=== PATIENT | female | born 1985 | race Caucasian/White ===

== ENCOUNTER 2016-11-08 08:17 | Emergency (ER) | payer OTHER, MEDICARE ==
[~2016-11-08] VITALS: Ht 162.6 cm; Wt 95.3 kg
--- NOTE | 2016-11-08 08:51 | ED GI/GU/ABDOMINAL COMPLAINT ---
History of Present Illness General Chief Complaint: Nausea, Vomiting, Diarrhea Stated Complaint: BIBA FOR NVD Source: patient, family, old records Exam Limitations: no limitations Vital Signs & Intake/Output Vital Signs & Intake/Output Vital Signs Date Time Temp Pulse Resp B/P Pulse O2 O2 Flow FiO2 Ox Delivery Rate 11/08 1204 102.3 11/08 1135 102.3 120 18 120/62 96 Room Air 11/08 0822 100.5 92 16 108/64 95 Room Air Allergies Coded Allergies: No Known Allergies (11/08/16) Reconcile Medications Cholecalciferol (Vitamin D3) (Vitamin D3) 5,000 UNIT TABLET 1 TAB PO DAILY SUPPLEMENT (Reported) Colostrum, Bovine (Colostrum) 500 MG CAPSULE 2 CAP PO BID SUPPLEMENT ( Reported) Doxycycline Hyclate 100 MG CAPSULE 1 CAP PO BID ANTIBIOTIC, INFECTION ( Reported) Fluconazole 150 MG TABLET 1 TAB PO ONE ANTIBIOTIC, INFECTION (Reported) Metformin HCl (Metformin HCl ER) 500 MG [id number] 1 TAB PO DAILY DIABETES, POLYCYSTIC (Reported) Metronidazole 500 MG TABLET 1 TAB PO TID GI (Reported) Omeprazole 20 MG CAPSULE.DR 1 CAP PO DAILY GI (Reported) Penicillin G Benzathine (Bicillin L-A) 1.2 MILLION UNIT/2 ML SYRINGE 1 INJ QWED ANTIBIOTIC, INFECTION (Reported) Prednisone 2.5 MG TABLET 1 TAB PO DAILY STEROID (Reported) Rifampin 300 MG CAPSULE 1 CAP PO BID GI (Reported) Triage Note: BIBA FROM HOME WITH C/O NAUSEA AND VOMITING SINCE 4AM THIS MORNING. HX: LYME DISEASE SINCE JANUARY PER PT. PT ARRIVES AWAKE, ALERT, ANSWERING QUESTIONS APPROPRIATELY, KEEPING EYES CLOSED. Triage Nurses Notes Reviewed? yes ? N Is pt currently ? No HPI: Patient presents for evaluation of abrupt onset of nausea vomiting and diarrhea. Patient states that she awoke about 4 AM with a burning heartburn pain with belching acid. She took Tums with some relief. Shortly after however she began having multiple episodes of vomiting and nonbloody diarrhea. She also feels very dizzy and her feet are cold. She has experienced shaking chills. She denies any associated chest pain, dyspnea, known ill contacts, recent travel, rashes or suspicious meals. Past History Travel History Traveled to [place] past 21 day No Medical History Any Pertinent Medical History? see below for history Surgical History Surgical History: non-contributory Psychosocial History What is your primary language [place]au[place] Family History Hx Contributory? No Review of Systems Review of Systems Constitutional: Reports: chills. EENTM: Reports: no symptoms. Respiratory: Reports: no symptoms. Cardiovascular: Reports: no symptoms. GI: Reports: see HPI. Genitourinary: Reports: no symptoms. Musculoskeletal: Reports: no symptoms. Skin: Reports: no symptoms. Neurological/Psychological: Reports: no symptoms. Hematologic/Endocrine: Reports: no symptoms. Immunologic/Allergic: Reports: no symptoms. All Other Systems: Reviewed and Negative Physical Exam Physical Exam Gastrointestinal: SEE BELOW Comments: Gen.: Well-nourished, well-developed, no acute respiratory distress. Tired but nontoxic appearing. Head: Normocephalic, atraumatic. Eyes: Normal inspection bilaterally Ears: Normal inspection bilaterally Nose: Normal inspection Throat/mouth : Tacky mucosa Neck: Supple, full range of motion, no goiter Heart: Regular rate and rhythm, no murmurs rubs or gallops Lungs: Clear to auscultation bilaterally with normal air entry Chest: Nontender Back: Normal range of motion Abdomen: Soft, nontender, nondistended, normal bowel sounds Extremities: Normal range of motion grossly, equal radial pulses, no cyanosis clubbing or edema Neurologic: Cranial nerves grossly intact, speech is clear Skin: warm and dry Psychiatric: Calm, cooperative, no apparent delusions or hallucinations Core Measures ACS in differential dx? No Severe Sepsis Present: No Septic Shock Present: No Progress Differential Diagnosis: VIRAL SYNDROME, GASTROENTERITIS, FOOD POISONING Plan of Care: Orders Procedure Date/time Status C.DIFFICILE 11/08 1350 Active URINE 11/08 927 Complete URINALYSIS 11/08 927 Complete LIPASE 11/08 927 Complete COMPREHENSIVE METABOLIC PANEL 11/08 927 Complete CBC WITHOUT DIFFERENTIAL 11/08 927 Complete Laboratory Tests 11/08/16 1255: Anion Gap 10, Estimated GFR > 60, BUN/Creatinine Ratio 20.0, Glucose 108 H, Calcium 7.7 L, Total Bilirubin 0.4, AST 17, ALT 32, Alkaline Phosphatase 63, Total Protein 5.5 L, Albumin 3.0 L, Globulin 2.5, Albumin/Globulin Ratio 1.2, Lipase 82 11/08/16 1143: Urinalysis LIGHT H, Urine Color YEL, Urine Clarity HAZY H, Urine pH 6.0, Ur Specific [place] >= 1.030, Urine Protein NEG, Urine Ketones NEG, Urine Nitrite NEG, Urine Bilirubin NEG, Urine Urobilinogen 0.2, Ur Leukocyte Esterase TRACE H , Ur Microscopic SEDIMENT EXAMINED, Urine RBC 1-3, Urine WBC 1-3 H, Ur Epithelial Cells MANY H, Urine Mucus FEW, Urine Hemoglobin NEG, Urine Glucose NEG, Urine Test NEGATIVE 11/08/16 0930: CBC w Diff MAN DIFF ORDERED, RBC 5.86 H, MCV 76.1 L, MCH 25.3 L, RDW 16.3 H, MPV 10.6 H, Gran % 90.9 H, Lymphocytes % 5.3 L, Monocytes % 3.5, Eosinophils % 0.3, Basophils % 0 L, Absolute Granulocytes 11.9 H, Segmented Neutrophils 83 H, Band Neutrophils 6 H, Absolute Lymphocytes 0.7 L, Lymphocytes 7 L, Monocytes 2, Absolute Monocytes 0.5, Eosinophils 1, Absolute Eosinophils 0, Basophils 1, Absolute Basophils 0, Platelet Estimate VERIFIED BY SMEAR, Hypochromic-Microcytic 1+, Anisocytosis 1+, Microcytic Cells 1+, PUBS MCHC 33.3 Microbiology 11/08 1350 STOOL: Clostridium difficile Toxin A & B - ORD Initial ED EKG: none Comments: 11/08/2016 11:40:56 AM although patient states she feels more coherent she is still vomiting. The fever has escalated. Plan continued fluids additional antiemetics and acetaminophen. 11/08/2016 1:50:53 PM patient is feeling well enough to go home and she is tolerating ice chips here in the emergency department. Departure Departure Disposition: HOME OR SELF CARE Condition: Stable Clinical Impression Primary Impression: Gastroenteritis Referrals: ALBA EATON APRN (PCP/Family) Additional Instructions: Phenergan as needed for nausea or vomiting. Levsin as needed for cramping abdominal pain. Clear liquid diet and advance as tolerated. Follow-up with your primary care doctor on Friday for reevaluation. Return if any concerns or sudden worsening. Departure Forms: Customer Survey General Discharge Information Prescriptions: Current Visit Scripts Promethazine HCl 1 TAB PO Q6P PRN NAUSEA/VOMITING #12 TAB Hyoscyamine (Levsin) 1-2 TAB PO Q6P PRN ABDOMINAL CRAMPS #20 TAB
[2016-11-08 09:48] LABS: ABSOLUTE BASOPHIL COUNT 0 /CUMM (0.0-0.2); ABSOLUTE EOSINOPHIL COUNT 0 /CUMM (0.0-0.7); ABSOLUTE GRANULOCYTE CT 11.9 /CUMM (1.4-6.5); ABSOLUTE LYMPH COUNT 0.7 /CUMM (1.2-3.4); ABSOLUTE MONOCYTE COUNT 0.5 /CUMM (0.10-0.60); BASOPHIL % 0 % (0.0-2.0); EOSINOPHIL % 0.3 % (0-5); HEMATOCRIT 44.5 % (37-47); MEAN CORPUSCULAR HGB 25.3 PG (27.0-31.0); MEAN CORPUSCULAR HGB CONC 33.3 G/DL (33.0-37.0); MEAN CORPUSCULAR VOLUME 76.1 FL (81.0-99.0); MEAN PLATELET VOLUME 10.6 FL (7.4-10.4); PLATELET COUNT 223 /CUMM (130-400); RBC DISTRIBUTION WIDTH 16.3 % (11.5-14.5); RED BLOOD CELL CT 5.86 /CUMM (4.20-5.40); WHITE BLOOD CELL COUNT 13.1 /CUMM (4.8-10.8)
[2016-11-08 09:49] LABS: GRANULOCYTE % 90.9 % (42.2-75.2)
[2016-11-08] MEDS ORDERED: METFORMIN HCL500 M5 PO (12:01)
[2016-11-08] MEDS ORDERED: DOXYCYCLINE HY100 M2 PO (12:02)
[2016-11-08] MEDS ORDERED: RIFAMPIN300 M1 PO (12:02)
[2016-11-08] MEDS ORDERED: [UNRECOGNIZED DRUG - CODE] (12:03)
[2016-11-08] MEDS ORDERED: METRONIDAZOLE500 M1 PO (12:03)
[2016-11-08] MEDS ORDERED: PREDNISONE2.5 M1 PO (12:04)
[2016-11-08] MEDS ORDERED: OMEPRAZOLE20 M2 PO (12:04)
[2016-11-08] MEDS ORDERED: VITAMIN D35000 UNI1 PO (12:05)
[2016-11-08] MEDS ORDERED: COLOSTRUM500 MG PO (12:06)
[2016-11-08] MEDS ORDERED: FLUCONAZOLE150 M1 PO (12:08)
[2016-11-08] MEDS ORDERED: PROMETHAZINE HC25 M3 PO ×2 (14:07→16:17)
[2016-11-08] MEDS ORDERED: LEVSIN0.125 M1 PO ×2 (14:07→16:17)
[2016-11-08] MEDS ORDERED: [UNRECOGNIZED DRUG - REMARK] (14:32)
[2016-11-08 14:38] VITALS: BP 126/84
== END 2016-11-08 14:39 ==
LOC: ERH 08:17
PROVIDERS: Emergency Medicine
DX: K52.9 Noninfective gastroenteritis and colitis, unspecified (principal)
CPT/HCPCS: 81001; 81025; 96361; 96365; 96375; J0131; J2405; J2550